=== PATIENT | female | born 1950 | race Hispanic/Latino ===

== ENCOUNTER → 2023-06-09 | Outpatient (CLI) | payer OTHER | END | disposition home or self-care (01) | LOC: RAH 13:31 | PROVIDERS: ATTEND Internal Medicine Cardiovascular Disease | DX: Z13.6 Encounter for screening for cardiovascular disorders (principal); R93.1 Abnormal findings on diagnostic imaging of heart and coronary circulation | CPT/HCPCS: 75571 ==

== ENCOUNTER → 2023-07-07 | Outpatient (CLI) | payer OTHER | END | disposition home or self-care (01) | LOC: SHCH 12:39 → EDUNIT# 13:00 | PROVIDERS: ATTEND Internal Medicine Cardiovascular Disease | DX: I08.0 Rheumatic disorders of both mitral and aortic valves (principal); R94.31 Abnormal electrocardiogram [ECG] [EKG] | CPT/HCPCS: 93306 ==

== ENCOUNTER → 2024-02-03 | Outpatient (CLI) | payer OTHER ==
[2024-02-03 12:17] LABS: POTASSIUM 4.7 mmol/L (3.5-5.1)
== END | disposition home or self-care (01) ==
LOC: LAB 09:39
PROVIDERS: ATTEND Student in an Organized Health Care Education/Training Program
DX: E78.49 Other hyperlipidemia (principal)
CPT/HCPCS: 36415; 80048

== ENCOUNTER → 2024-02-06 | Outpatient (CLI) | payer OTHER ==
[~2024-02-06] MED LIST: IOHEXOL-350 75 ML VIAL IV ONE
== END | disposition home or self-care (01) ==
LOC: RAH 13:16
PROVIDERS: ATTEND Student in an Organized Health Care Education/Training Program
DX: J01.90 Acute sinusitis, unspecified (principal)
CPT/HCPCS: 70488; Q9967

== ENCOUNTER → 2024-07-20 | Outpatient (CLI) | payer OTHER ==
[2024-07-20 12:33] LABS: ALBUMIN 4.1 g/dL (3.5-5.0); BILIRUBIN,TOTAL 0.8 mg/dL (0.2-1.0); CREATININE 1.1 mg/dL (0.5-1.0); POTASSIUM 4.8 mmol/L (3.5-5.1); TOTAL PROTEIN, SERUM 7.8 g/dL (6.0-8.3)
== END | disposition home or self-care (01) ==
LOC: LAB 10:33
PROVIDERS: ATTEND Student in an Organized Health Care Education/Training Program
DX: E78.49 Other hyperlipidemia (principal); R07.9 Chest pain, unspecified
CPT/HCPCS: 36415; 80053; 80061

== ENCOUNTER → 2024-09-15 | Outpatient (CLI) | payer OTHER ==
--- NOTE | 2024-09-16 09:23 | HMCIMG ---
Exam Type: MAMMO DX BILATERAL Clinical Information: MASTODYNIA Comparison: August 15, 2020 Technique: Mammogram with CAD was performed with CC and MLO projections. CAD shows no worrisome regions. FINDINGS: The breasts are heterogeneously dense, which may obscure small masses. No dominant mass or suspicious microcalcification identified. There is no nipple retraction or skin thickening. Benign-appearing calcifications are seen. CAD shows no worrisome regions. IMPRESSION: 1. No mammographic signs of malignancy. 2. Routine follow-up recommended. CATEGORY 2: BENIGN FINDINGS Note: A negative x-ray should not delay biopsy if a dominant or clinically suspicious mass is present, since 8-10% of cancers are not identified by mammography. Dense breasts may obscure an underlying neoplasm.
--- NOTE | 2024-09-16 09:58 | HMCIMG ---
Exam Type: US BREAST BILATERAL Clinical Information: BREAST PAIN Comparison: August 15, 2020 FINDINGS: Bilateral breast ultrasound was performed. Right breast 12:00 position simple cyst, 4 mm, and 11 to 12:00 position hypoechoic well-circumscribed complex probably benign nodule, 3 x 4 mm. No other nodules either side. Bilateral breast ultrasound demonstrates bilateral benign-appearing axillary lymph nodes. IMPRESSION: 1. Probably benign complex nodule right breast 11 to 12:00 position for which six-month follow-up breast ultrasound recommended. BI-RADS: CATEGORY 3: PROBABLY BENIGN-SHORT INTERVAL FOLLOW-UP SUGGESTED
== END | disposition home or self-care (01) ==
LOC: RAH 13:29
PROVIDERS: ATTEND Student in an Organized Health Care Education/Training Program
DX: R92.333 Mammographic heterogeneous density, bilateral breasts (principal); N64.4 Mastodynia
CPT/HCPCS: 77066

== ENCOUNTER → 2025-03-31 | Outpatient (CLI) | payer OTHER ==
--- NOTE | 2025-04-01 09:10 | HMCIMG ---
Right BREAST ULTRASOUND: CLINICAL HISTORY: Follow-up for complex nodule seen in the right breast. Prior study was performed on 09/15/2024. Finding: Real-time examination of the [right/left] breast demonstrates heterogeneous echotexture throughout the breast. The right breast there is a complex lesion measuring 0 4 x 0.3 x 0.5 cm. I would recommend ultrasound-guided biopsy for further evaluation.. IMPRESSION: Solid hypoechoic lesion measuring 0.4 x 0.3 x 0.5 cm. I would recommend ultrasound-guided biopsy for histological sampling.. FINAL ASSESSMENT: ACR: BI-RAD -4. Suspicious Finding.
== END ==
LOC: RAH 13:06
PROVIDERS: ATTEND Family Medicine
DX: N63.10 Unspecified lump in the right breast, unspecified quadrant (principal); N64.89 Other specified disorders of breast
CPT/HCPCS: 76641